=== PATIENT | female | born 1985 | race Asian ===

== ENCOUNTER 2019-08-11 08:53 | Day surgery (SDC) | payer BC ==
[2019-08-11] MEDS ORDERED: VANCOMYCIN 1 GM (PMX) 0 ML (09:33)
[2019-08-11 09:34] LABS: ADD MAN DIFF? NO
[2019-08-11 09:37] LABS: BASOPHIL # 0.1 10^3/ul (0.0-0.1); BASOPHILS % 1.3 % (0.0-2.0); EOSINOPHILS # 0.2 10^3/ul (0.0-0.5); EOSINOPHILS % 3.7 % (0.0-7.0); HEMATOCRIT 42.3 % (37.0-47.0); HEMOGLOBIN 14.1 g/dl (12.0-16.0); LYMPHOCYTES # 1.5 10^3/ul (0.8-2.9); LYMPHOCYTES % 27.7 % (15.0-51.0); MEAN CORPUSCULAR HEMOGLOBIN 30.3 pg (29.0-33.0); MEAN CORPUSCULAR HGB CONC 33.3 g/dl (32.0-37.0); MEAN CORPUSCULAR VOLUME 90.8 fl (82.0-101.0); MEAN PLATELET VOLUME 11.1 fl (7.4-10.4); MONOCYTE # 0.3 10^3/ul (0.3-0.9); MONOCYTES % 6.2 % (0.0-11.0); NEUTROPHIL # 3.3 10^3/ul (1.6-7.5); NEUTROPHILS % 60.9 % (39.0-77.0); PLATELET COUNT 270 10^3/UL (140-415); RED BLOOD COUNT 4.66 10^6/ul (4.20-5.40); RED CELL DISTRIBUTION WIDTH 13.1 % (11.5-14.5)
[2019-08-11 09:37] LABS: WHITE BLOOD COUNT 5.5 10^3/ul (4.8-10.8)
[2019-08-11 09:56] LABS: INR 1.02; PROTIME 13.5 Sec (11.9-14.9); PT RATIO 1.1
[2019-08-11 09:57] LABS: ALANINE AMINOTRANSFERASE 14 IU/L (13-69); ALBUMIN 4.5 g/dl (3.3-4.9); ALBUMIN/GLOBULIN RATIO 1.32; ALKALINE PHOSPHATASE 40 IU/L (42-121); ANION GAP 9 (5-13); ASPARTATE AMINO TRANSFERASE 22 IU/L (15-46); BILIRUBIN,INDIRECT 0.6 mg/dl (0-1.1); BILIRUBIN,TOTAL 0.6 mg/dl (0.2-1.3); BLOOD UREA NITROGEN 11 mg/dl (7-20); CALCIUM 9.1 mg/dl (8.4-10.2); CARBON DIOXIDE 24 mmol/L (21-31); CHLORIDE 105 mmol/L (97-110); CREATININE 0.68 mg/dl (0.44-1.00); Estimated GFR > 60 mL/min (>60); GLUCOSE 101 mg/dl (70-220); POTASSIUM 4.1 mmol/L (3.5-5.1); SODIUM 138 mmol/L (135-144); TOTAL PROTEIN 7.9 g/dl (6.1-8.1)
[2019-08-11 10:10] LABS: PARTIAL THROMBOPLASTIN TIME 37.6 Sec (23.0-35.0)
[2019-08-11] MEDS ORDERED: FENTAnyl 50 MCG/ML VIAL (10:21)
[2019-08-11] MEDS ORDERED: MIDAZOLAM 1 MG/ML 2 ML INJ (10:21)
[2019-08-11] MEDS ORDERED: PROPOFOL 40 ML (10:21)
[2019-08-11] MEDS ORDERED: CLINDAMYCIN 900 MG (PMX) 50 ML IVPB ×2 (10:27→10:30)
[2019-08-11] MEDS ORDERED: ONDANSETRON 4 MG INJ IV (10:30)
[2019-08-11] MEDS ORDERED: OXYCODONE/ACETAMINOPHEN (5/325) TAB PO (10:30)
[2019-08-11] MEDS ORDERED: HYDROmorphONE 1 MG/5 ML IV SYRINGE IV (10:30)
[2019-08-11] MEDS ORDERED: KETOROLAC 30 MG INJ IV (10:30)
[2019-08-11] MEDS ORDERED: MEPERIDINE 25 MG INJ IV (10:30)
[2019-08-11] MEDS ORDERED: FENTAnyl 50 MCG/ML VIAL IV (10:30)
[2019-08-11] MEDS: LIDOCAINE 1% (MPF) 30 ML INJ (10:46)
[2019-08-11] MEDS ORDERED: LIDOCAINE 2% (SDV) 5 ML INJ (11:10)
== END 2019-08-11 13:35 | disposition home or self-care (01) ==
LOC: SDS 08:53
DX: Z30.46 Encounter for surveillance of implantable subdermal contraceptive (principal)
CPT/HCPCS: 11976; 73060; 80053; 85025; 85610; 85730